=== PATIENT | female | born 1985 ===

== ENCOUNTER 2016-11-16 19:36 | Emergency (ER) | payer OTHER ==
[2016-11-16 19:42] VITALS: BP 137/86; PULSE 78; RESP 18; TEMP 98.7; O2SAT 98
[2016-11-16] MEDS ORDERED: Tmp-Smz 800 mg-160 mg DS Tab PO STA (20:32)
[2016-11-16] MEDS ORDERED: Tmp-Smz 800 mg-160 mg DS Tab ONE (20:49)
== END 2016-11-16 21:44 | disposition home or self-care (01) ==
LOC: H.ER 19:36
DX: N39.0 Urinary tract infection, site not specified (principal)